=== PATIENT | male | born 1940 | race Caucasian/White ===

== ENCOUNTER 2021-02-02 09:52 | Inpatient (IN) | payer MEDICARE, OTHER ==
[~2021-02-02] VITALS: Ht 167.6 cm; Wt 87.5 kg
[2021-02-02 10:20] LABS: BASOPHILS # (AUTO) 0.1 /CMM (0.0-0.2); BASOPHILS % (AUTO) 1.5 % (0.0-2.0); BILIRUBIN,URINE Negative (NEGATIVE); COLOR,URINE YELLOW (YELLOW); EOSINOPHILS % (AUTO) 0.7 % (0.0-6.0); HEMATOCRIT 38 % (39-51); HEMOGLOBIN 12.7 g/dL (13.5-17.5); LEUKOCYTE ESTERASE ,URINE Negative (NEGATIVE); LYMPHOCYTES # (AUTO) 0.5 /CMM (0.8-4.8); LYMPHOCYTES % (AUTO) 7.5 % (20.0-44.0); MEAN CORPUSCULAR HGB CONC 33 g/dl (31.0-36.0); MEAN CORPUSCULAR VOLUME 92 fL (80-96); MONOCYTES # (AUTO) 1.2 /CMM (0.1-1.30); MONOCYTES % (AUTO) 18.6 % (2.0-12.0); NEUTROPHILS # (AUTO) 4.5 /CMM (1.8-8.9); NEUTROPHILS % (AUTO) 71.7 % (43.0-81.0); NITRITE, URINE Negative (NEGATIVE); PH,URINE 5.5 (5.0-8.0); PLATELET COUNT (AUTO) 119 /CMM (150-450); PROTEIN,URINE 30 mg/dl (NEGATIVE); RED BLOOD CELL COUNT(AUTO) 4.18 MIL/uL (4.5-6.0); UGLUCOSE Negative (NEGATIVE); UROBILINOGEN,URINE >=8.0 EU/dL (0.2); WHITE BLOOD COUNT (AUTO) 6.3 K/uL (4.3-11.0)
[2021-02-02] MEDS ORDERED: IV NS 0.9% 1,000 ML BAG IV ONE (10:30)
[2021-02-02 10:35] LABS: BACTERIA,URINE Rare /HPF (None Seen); RBC,URINE NONE SEEN /HPF (0-2); SQUAMOUS EPITHELIAL CELL,UR Few /HPF (None Seen); WBC,URINE NONE SEEN /HPF (0-3)
--- NOTE | 2021-02-02 10:35 | NUR ---
KYLAH PRIETO From Home "NOT Feeling Well/Fever?NOT acting like his usual self since yesterday". On 02 @ 2lpm via NC. connected to the monitor and pulse ox. kept comfortable, will continue to monitor accordingly.
--- NOTE | 2021-02-02 10:40 | NUR ---
NIKOLAI LYNN [phone]
[2021-02-02 10:49] LABS: ALANINE AMINOTRANSFERASE 21 U/L (12-78); ALBUMIN 2.6 g/dL (3.4-5.0); ALKALINE PHOSPHATASE 75 U/L (46-116); ASPARTATE AMINOTRANSFERASE 36 U/L (15-37); B-TYPE NATRIURETIC PEPTIDE 322 PG/ML (0-125); BILIRUBIN,DIRECT 0.3 mg/dL (0.0-0.2); BILIRUBIN,TOTAL 0.7 mg/dL (0.2-1.0); CALCIUM, SERUM 8.7 mg/dL (8.5-10.1); CARBON DIOXIDE 28 mmol/L (21-32); CHLORIDE 103 mmol/L (98-107); CREATININE 1.5 mg/dL (0.6-1.3); GLUCOSE 101 mg/dL (74-106); POTASSIUM 3.7 mmol/L (3.5-5.1); SODIUM SERUM 139 mmol/L (136-145); TOTAL PROTEIN, SERUM 6.3 g/dL (6.4-8.2); UREA NITROGEN, BLOOD 25 mg/dL (7-18)
--- NOTE | 2021-02-02 11:01 | NUR ---
MOVE SHEET SUBMITTED AND CALLED FOR TELE BED.
--- NOTE | 2021-02-02 11:10 | NUR ---
Lab Called to report COVID Negative result
[2021-02-02] MEDS ORDERED: ACETAMINOPHEN 325 MG TABLET PO ONE (11:30)
[2021-02-02] MEDS ORDERED: DEXAMETHASONE SOD PHOSPHATE 10 MG/ML VIAL IV ONE (11:30)
[2021-02-02] MEDS ORDERED: ACETAMINOPHEN 325 MG TABLET ONE (11:31)
[2021-02-02] MEDS ORDERED: DEXAMETHASONE SOD PHOSPHATE 10 MG/ML VIAL ONE (11:31)
[2021-02-02] MEDS ORDERED: CT SWABBABLE VALVE TRANS SET 1 EA INFUS.SET MC ONE (11:38)
[2021-02-02] MEDS ORDERED: IOHEXOL-350 100 ML VIAL IV ONE (11:38)
[2021-02-02] MEDS ORDERED: IV NS 0.9% 250 ML IV ONE (11:38)
[2021-02-02 11:41] LABS: BAND % (MANUAL) 4 % (0.0-5.0); LYMPHOCYTES % (MANUAL) 9 % (16-48); MONOCYTES % (MANUAL) 17 % (0-11.0); NEUTROPHILS % (MANUAL) 70 (42-76)
[2021-02-02] MEDS ORDERED: INSU100I19 SQ (11:53)
[2021-02-02] MEDS ORDERED: TERA10CA4 PO (11:53)
[2021-02-02] MEDS ORDERED: ROSU5TAB13 PO (11:53)
[2021-02-02] MEDS ORDERED: FURO40TA5 PO (11:53)
[2021-02-02] MEDS ORDERED: FERR325T23 PO (11:53)
[2021-02-02] MEDS ORDERED: FOLI0.4T6 PO (11:53)
[2021-02-02] MEDS ORDERED: JENTADUETO PO (11:53)
[2021-02-02] MEDS ORDERED: LINA5TAB PO (11:53)
[2021-02-02] MEDS ORDERED: TROS20TA3 PO (11:53)
[2021-02-02] MEDS ORDERED: CARV25TA2 PO (11:53)
[2021-02-02] MEDS ORDERED: MYRBETRIQ PO (11:53)
[2021-02-02] MEDS ORDERED: ASPI-1420 PO (11:53)
[2021-02-02] MEDS ORDERED: OMEP20CA15 PO (11:53)
[2021-02-02] MEDS ORDERED: AMLO2.5T4 PO (11:53)
[2021-02-02] MEDS ORDERED: ALLO100T PO (11:53)
[2021-02-02] MEDS ORDERED: AMYL1CAP58 PO (11:53)
[2021-02-02] MEDS ORDERED: FINA5TAB11 PO (11:53)
[2021-02-02] MEDS ORDERED: NATE120T6 PO (11:53)
[2021-02-02] MEDS ORDERED: HYDR-4077 PO (11:53)
--- NOTE | 2021-02-02 11:53 | NUR ---
room 103
--- NOTE | 2021-02-02 11:59 | NUR ---
[facility] CALLED PENCIL SORTER PAGED.
--- NOTE | 2021-02-02 12:05 | NUR ---
report given to Cassie BRAY for elfego
[2021-02-02] MEDS ORDERED: MAGNESIUM HYDROXIDE 30 ML UDC PO PRN (13:00)
[2021-02-02] MEDS ORDERED: ZOLPIDEM TARTRATE 5 MG TABLET PO PRN (13:00)
[2021-02-02] MEDS ORDERED: MAG HYDROX/AL HYDROX/SIMETH 30 ML UDC PO PRN (13:00)
[2021-02-02] MEDS ORDERED: HYDROCODONE/APAP 5/325MG TABLET PO PRN (13:00)
[2021-02-02] MEDS ORDERED: ACETAMINOPHEN 325 MG TABLET PO PRN (13:00)
[2021-02-02] MEDS ORDERED: Z GUARD REMEDY 2 OZ OINT TP PRN (13:00)
[2021-02-02] MEDS ORDERED: ONDANSETRON HCL/PF 4 MG/2 ML VIAL IVP PRN (13:00)
[2021-02-02 13:13] LABS: ABG BASE EXCESS 2.1 mmol/L; ABG OXYGEN SATURATION 96.4 % (92.0-98.5); ABG PH 7.453 (7.350-7.450); AaDO2 98.9 mmHg; COHb 0.6 % (0.5-1.5); MetHb 0.3 % (0.0-1.5); O2Hb 95.5 % (94.0-97.0); SITE, ABG Right Radial; VENT MODE, BG NASAL CANNULA
[2021-02-02 14:30] VITALS: BP 152/71
--- NOTE | 2021-02-02 14:41 | NUR ---
wheeled patient via gurney accompanied by RN and emt in no distress.
[2021-02-02 15:52] LABS: C-REACTIVE PROTEIN 15.3 mg/dL (0.0-0.9)
[2021-02-02 16:00] VITALS: BP 152/71
[2021-02-02] MEDS ORDERED: DEXTROSE 50%-WATER 50 ML DISP.SYRIN IV PRN (16:00)
[2021-02-02] MEDS ORDERED: LIPASE/PROTEASE/AMYLASE 1 EACH CAPSULE.DR PO SCH (17:00)
[2021-02-02] MEDS: NATEGLINIDE 60 MG TABLET PO SCH (18:18)
[2021-02-02] MEDS: hydrALAZINE HCL 50 MG TABLET PO SCH (18:19)
[2021-02-02] MEDS: CARVEDILOL 12.5 MG TABLET PO SCH (18:19)
[2021-02-02] MEDS: BLOOD SUGAR DIAGNOSTIC 1 EACH STRIP IN SCH ×2 (18:20→22:35)
[2021-02-02] MEDS: ENOXAPARIN SODIUM 40 MG/0.4 ML DISP.SYRIN SQ SCH (18:20)
[2021-02-02] MEDS: LIPASE/PROTEASE/AMYLASE 1 EACH CAPSULE.DR PO SCH (18:23)
[2021-02-02] MEDS: INSULIN REGULAR, HUMAN 100 UNIT/ML 3 ML VIAL SQ PRN ×2 (18:24→22:34)
[2021-02-02 20:00] VITALS: BP 146/83
--- NOTE | 2021-02-02 20:30 | NUR ---
HEARD MARGARITO FROM PATIENT' ROOM AT 1927 RUSHED INTO THE ROOM AND FOUND PATIENT ON THE FLOOR, DENIES ANY PAIN, ABLE TO MOVE EXTREMITIES WITHOUT PAIN, NO CHANGE IN LOC, PT IS ABLE TO IDENTIFY HIMSELF, ORIENRED TO NAME, DATE OF AND PLACE. ASSISSTED PATIENT BACK TO BED WITH TWO NURSES . ASSESSED PT AND FOUND SKIN TEAR ON RIGHT ARM 1 X 0.5 CM. PT STATED HE DID NOT HIT HIS HEAD. PATIENT STATED HE WANTED TO USE RESTROOM, REMINDED PT TO USE CALL LIGHT FOR ANY ASSISTANCE. NURSING HEAD OF STRATEGY AND DR BRAVO MADE AWARE. RECEIVED RIGHT ARM X RAY. NO FRACTURE IDENTIFIED IN X RAY. INFORMED SHELLY CRESPO REGARDING X RAY. DAUGHTER POLLY INFORMED, SHE ALSO ADVISED PATIENT TO USE CALL LIGHT FOR ASSISTANCE.
--- NOTE | 2021-02-02 20:40 | NUR ---
RN NOTES, INFORMED NURSE FUNDING SPECIALIST THAT PATIENT HAD A FALL AD WE HAVE AN ORDER FROM MD TO PLACE A SITTER FOR PATIENT.
[2021-02-02] MEDS ORDERED: HALOPERIDOL DECANOATE IM 100 MG/ML AMPUL IM PRN (21:00)
[2021-02-03] VITALS: BP 142/75
--- NOTE | 2021-02-03 02:00 | NUR ---
RN NOTES, PATIENT NOTED WITH O2 REMOVED, TRIED TO PUT O2 BACK TO PATIENT AND HE REACTED VERY AGGRESSIVE TRYING TO HIT ME, EDUCATION PROVIDED TO PATIENT,AN TRIED TO CALM HIM DOWN, PATIENT VERY AGGRESSIVE, WILL CONTINUE TO MONITOR.
[2021-02-03] MEDS: HALOPERIDOL LACTATE INJ 5 MG/ML VIAL IM PRN ×2 (02:08→22:47)
--- NOTE | 2021-02-03 02:20 | NUR ---
RN NOTE AT 0224 BED ALARM WENT OFF, RUN TO ROOM AND PATIENT NOTED STANDING UP WITH UNSTEADY GATE ABOUT TO FALL AGAIN, PULLING THE O2 TUBING, TRIED TO PUT PATIENT BACK TO BED AND ENCOURAGED TO USE URINAL AT BEDSIDE, AND PATIENT BECAME VERY AGITATED TRYING TO HIT STAFF, 3 NURSES TRYING TO CALM PATIENT DOWN, PATIENT CONTINUE VERY AGITATED AND AGGRESSIVE, CALLED SECURITY AND 2 SECURITY CAME TO RESCUE, PATIENT VERY AGGRESSIVE/VIOLENT AND STRONG, CALLED MD AND MD REPLIED WITH ORDER FOR BILATERAL WRIST RESTRAINS, PATIENT TRYING TO REMOVE RESTRAINS, AND SWINGING FEET TO HIT STAFF, PATIENT REMOVED IV ACCESS, MD AWARE THAT PATIENT DOESN'T HAVE IV, WILL CONTINUE TO MONITOR CLOSELY, NO SITTER AVAILABLE AT THIS TIME.
--- NOTE | 2021-02-03 02:24 | NUR ---
RN NOTE PT TRYING TO GET OUT OF BED TO USE RESTROOM, EDUCATED PATIENT TO USE URINAL WHILE IN THE BED, HE BECAME VIOLENT, AGITATED AND COMBATIVE. PT WAS TRYING TO HIT STAFF, CALLED SECURITY, INFORMED DR BRAVO, RECEIVED ORDER FOR RESTRAINT.
[2021-02-03] MEDS ORDERED: LORAZEPAM INJ 2 MG/ML VIAL IM PRN (03:30)
--- NOTE | 2021-02-03 04:00 | NUR ---
pt refused 0400 o'clock vital signs.
--- NOTE | 2021-02-03 05:00 | NUR ---
PT REFUSED LAB DRAW.
--- NOTE | 2021-02-03 07:14 | NUR ---
RN NOTE REPORT GIVEN TO ONCOMING SHIFT FOR RENA.
[2021-02-03 08:00] VITALS: BP 114/53
--- NOTE | 2021-02-03 08:00 | NUR ---
PATIENT RECEIVED IN BED, ALERT AND ORIENTED X 3 ICELANDIC SPEAKING. PATIENT ON 2L NASAL CANNULA, INTERMITTENTLY REMOVES BY HIMSELF. NO RESPIRATORY DISTRESS. PATIENT ON MONITOR SHOWING SR 80-90s. PATIENT HAS SITTER AT BEDSIDE, S/P FALL PREVIOUS SHIFT. PATIENT ALSO HAS NO IV ACCESS, PREVIOUSLY REMOVED BY PATIENT. ALL SAFETY MEASURES IN PLACE. WILL CONTINUE TO MONITOR
[2021-02-03] MEDS: NATEGLINIDE 60 MG TABLET PO SCH ×3 (08:40→17:01)
[2021-02-03] MEDS: FINASTERIDE (5 MG) 5 MG TABLET PO SCH (08:41)
[2021-02-03] MEDS: LINAGLIPTIN 5 MG TABLET PO SCH (08:41)
[2021-02-03] MEDS: FERROUS SULFATE (325 MG) 325 MG/TAB TABLET PO SCH (08:41)
[2021-02-03] MEDS: ASPIRIN EC 81 MG TABLET.DR PO SCH (08:41)
[2021-02-03] MEDS: ATORVASTATIN 10 MG TABLET PO SCH (08:42)
[2021-02-03] MEDS: FOLIC ACID 1 MG TABLET PO SCH (08:42)
[2021-02-03] MEDS: FUROSEMIDE 40 MG TABLET PO SCH (08:42)
[2021-02-03] MEDS: ALLOPURINOL 100 MG TABLET PO SCH (08:42)
[2021-02-03] MEDS: BLOOD SUGAR DIAGNOSTIC 1 EACH STRIP IN SCH ×4 (08:43→21:31)
[2021-02-03] MEDS: INSULIN REGULAR, HUMAN 100 UNIT/ML 3 ML VIAL SQ PRN ×4 (08:47→21:34)
[2021-02-03] MEDS: AMLODIPINE BESYLATE 2.5 MG TABLET PO SCH (08:48)
[2021-02-03] MEDS: CARVEDILOL 12.5 MG TABLET PO SCH ×2 (08:48→17:03)
[2021-02-03] MEDS: HOME MED MISCELLANEOUS PO SCH ×2 (08:49→17:01)
[2021-02-03] MEDS: PANTOPRAZOLE 40 MG TABLET.DR PO SCH (08:50)
[2021-02-03 09:00] LABS: BASOPHILS % (AUTO) 0.3 % (0.0-2.0); HEMATOCRIT 37 % (39-51); HEMOGLOBIN 12.1 g/dL (13.5-17.5); LYMPHOCYTES # (AUTO) 0.6 /CMM (0.8-4.8); MEAN CORPUSCULAR HGB CONC 33 g/dl (31.0-36.0); MEAN CORPUSCULAR VOLUME 92 fL (80-96); MONOCYTES # (AUTO) 0.6 /CMM (0.1-1.30); MONOCYTES % (AUTO) 10.6 % (2.0-12.0); NEUTROPHILS # (AUTO) 4.4 /CMM (1.8-8.9); NEUTROPHILS % (AUTO) 79.1 % (43.0-81.0); PLATELET COUNT (AUTO) 154 /CMM (150-450); RED BLOOD CELL COUNT(AUTO) 3.98 MIL/uL (4.5-6.0); WHITE BLOOD COUNT (AUTO) 5.6 K/uL (4.3-11.0)
[2021-02-03] MEDS ORDERED: Medication Not On Formulary EA ([Myrbetriq] 25 MG) PO SCH (09:00)
[2021-02-03 09:16] LABS: CHOLESTEROL 80 mg/dL (<200); HDL CHOLESTEROL 17 mg/dL (40-60); LDL 43 mg/dL (0-99); TRIGLYCERIDES 146 mg/dL (30-150)
--- NOTE | 2021-02-03 09:30 | NUR ---
LASIX GIVEN ORDERED, BP 114/53
[2021-02-03 09:39] LABS: CALCIUM, SERUM 9.7 mg/dL (8.5-10.1); CARBON DIOXIDE 22 mmol/L (21-32); CHLORIDE 104 mmol/L (98-107); CREATININE 1.4 mg/dL (0.6-1.3); GLUCOSE 280 mg/dL (74-106); POTASSIUM 3.8 mmol/L (3.5-5.1); SODIUM SERUM 139 mmol/L (136-145); UREA NITROGEN, BLOOD 31 mg/dL (7-18)
[2021-02-03] MEDS: hydrALAZINE HCL 50 MG TABLET PO SCH ×2 (10:03→17:04)
[2021-02-03] MEDS: TERAZOSIN HCL 5 MG CAPSULE PO SCH (10:03)
[2021-02-03] MEDS: LIPASE/PROTEASE/AMYLASE 1 EACH CAPSULE.DR PO SCH ×3 (10:13→17:01)
[2021-02-03 12:00] VITALS: BP 101/56
[2021-02-03 16:00] VITALS: BP 108/72
[2021-02-03] MEDS: ENOXAPARIN SODIUM 40 MG/0.4 ML DISP.SYRIN SQ SCH (17:09)
--- NOTE | 2021-02-03 18:29 | NUR ---
PATIENT REMAINS IN BED NO ACUTE CHANGE IN CONDITION. PATIENT REMAINS WITH 1:1 SITTER. PATIENT ON 2L NASAL CANNULA, NO RESPIRATORY DISTRESS. PATIENT HAS RAC 20G IV. FLUSHED AND INTACT. ALL SAFETY MEASURES IN PLACE. ALL NEEDS TO BE ENDORSED TO ONCOMING RN.
--- NOTE | 2021-02-03 19:35 | NUR ---
rn opening notes received pt in bed, a/o x3, cooperative. turkmen speaking injection molding machine operator utilized. pt is on 2L via nasal cannula tolerating well, no resp distress or sob noted. pt is on tele monitoring. presents with SR with BBB baseline to pt. pt has RAC #20. flushed. pt uses urinal with assist. safety measures in place. hob elevated. side rails up x3, bed locked in lowest position. bed alarm on. call light within reach. sitter at bedside. will cont to closely monitor.
[2021-02-03 20:00] VITALS: BP 108/72
--- NOTE | 2021-02-03 20:35 | NUR ---
talked to pt daughter issac, helps translate with father when needed. gave update.
[2021-02-03] MEDS: AMOX/CLAVULANATE 875 MG TABLET PO SCH (21:56)
--- NOTE | 2021-02-03 23:09 | NUR ---
pt became extremely agitated tried to get out of bed, became aggressive attempting to hit, bite, kick staff. despite de escalation, with daughter on phone at bedside trying to talk to her father, was unsuccessful. pt was combative, soft joce wrist restraints applied. haldol IM prn administered as ordered. hob elevated. will cont to monitor. sitter remains at bedside.
--- NOTE | 2021-02-04 00:40 | NUR ---
pt refused midnight vitals, attempted to kick staff. will cont to monitor
--- NOTE | 2021-02-04 01:32 | NUR ---
pt sheets soiled with urine, pt became combative when trying to change sheets/clean pt, with multiple staff at bedside, was able to change linens and perform pericare. sitter at bedside
[2021-02-04 04:00] VITALS: BP 154/71
--- NOTE | 2021-02-04 04:35 | NUR ---
only partial vitals taken due to pt refusing, being aggressive and combative.
--- NOTE | 2021-02-04 06:30 | NUR ---
rn closing notes pt is asleep at this time. did not sleep at all throughout shift, pt remains on room air, no s/s of distress noted. breathing even and unlabored. tele monitoring off due to pt refusing and attempting to throw equipment, safety measures in place. will endorse to oncoming nurse.
[2021-02-04] MEDS: BLOOD SUGAR DIAGNOSTIC 1 EACH STRIP IN SCH ×4 (07:30→21:21)
--- NOTE | 2021-02-04 07:30 | NUR ---
RN OPENING NOTES PATIENT PRESENT IN BED, A/OX3, ST HELENIAN SPEAKER, ON ROOM AIR, REFUSING TO TAKE VITALS, UNCOOPERATIVE AT THIS TIME, DENIES PAIN, NO S/SX OF SOB OR RESP DISTRESS NOTED AT THIS TIME , REMOVED TELE-MONITOR, UNABLE TO DETECT RHYTHM, R AC IV LINE, INTACT, FLUSHED, COVERED WITH SLEEVE, SAFETY MEASURES IN PLACE, SITTER AT BED SITE, BED LOCKED, IN LOWEST POSITION, CALL LIGHT IN REACH, WILL CONT TO MONITOR
--- NOTE | 2021-02-04 07:50 | NUR ---
REFUSED ACUTE CHECK, EDUCATION PROVIDED X3, STILL REFUSING
[2021-02-04 08:00] VITALS: BP 134/71
--- NOTE | 2021-02-04 08:00 | NUR ---
Refusing all PO meds and acute check, will offer again
[2021-02-04] MEDS: ASPIRIN EC 81 MG TABLET.DR PO SCH (10:20)
[2021-02-04] MEDS: hydrALAZINE HCL 50 MG TABLET PO SCH ×2 (10:20→17:00)
[2021-02-04] MEDS: LINAGLIPTIN 5 MG TABLET PO SCH (10:21)
[2021-02-04] MEDS: ALLOPURINOL 100 MG TABLET PO SCH (10:21)
[2021-02-04] MEDS: FUROSEMIDE 40 MG TABLET PO SCH (10:21)
[2021-02-04] MEDS: AMLODIPINE BESYLATE 2.5 MG TABLET PO SCH (10:21)
[2021-02-04] MEDS: PANTOPRAZOLE 40 MG TABLET.DR PO SCH (10:21)
[2021-02-04] MEDS: FINASTERIDE (5 MG) 5 MG TABLET PO SCH (10:21)
[2021-02-04] MEDS: CARVEDILOL 12.5 MG TABLET PO SCH ×2 (10:22→17:00)
[2021-02-04] MEDS: AMOX/CLAVULANATE 875 MG TABLET PO SCH ×2 (10:22→20:09)
[2021-02-04] MEDS: NATEGLINIDE 60 MG TABLET PO SCH ×3 (10:22→18:02)
[2021-02-04] MEDS: HOME MED MISCELLANEOUS PO SCH ×2 (10:23→18:06)
[2021-02-04] MEDS: FOLIC ACID 1 MG TABLET PO SCH (10:23)
[2021-02-04] MEDS: ATORVASTATIN 10 MG TABLET PO SCH (10:23)
[2021-02-04] MEDS: FERROUS SULFATE (325 MG) 325 MG/TAB TABLET PO SCH (10:23)
[2021-02-04] MEDS: INSULIN REGULAR, HUMAN 100 UNIT/ML 3 ML VIAL SQ PRN ×4 (10:25→21:33)
[2021-02-04] MEDS: TERAZOSIN HCL 5 MG CAPSULE PO SCH (10:29)
[2021-02-04] MEDS: LIPASE/PROTEASE/AMYLASE 1 EACH CAPSULE.DR PO SCH ×3 (10:29→18:02)
--- NOTE | 2021-02-04 10:29 | NUR ---
After talking with Fadumo, patient agreed to follow up with treatment plan and take his medications
--- NOTE | 2021-02-04 11:06 | NUR ---
AFTER TALKING TO OVER THE PHONE PATIENT BECOME MORE COOPERATIVE WITH TREATMENT PLAN, MORNING PO MEDS AND INSULIN GIVEN, ATE BREAKFAST, PROVIDED WITH FLUIDS, VERBALIZED UNDERSTANDING OF FUTURE TREATMENT PLAN [phone] RASHAAD BAEZ
[2021-02-04 12:00] VITALS: BP 134/71
[2021-02-04 13:11] LABS: BASOPHILS % (AUTO) 0.4 % (0.0-2.0); EOSINOPHILS % (AUTO) 2.6 % (0.0-6.0); HEMATOCRIT 39 % (39-51); HEMOGLOBIN 12.6 g/dL (13.5-17.5); LYMPHOCYTES # (AUTO) 0.6 /CMM (0.8-4.8); LYMPHOCYTES % (AUTO) 12.9 % (20.0-44.0); MEAN CORPUSCULAR HGB CONC 33 g/dl (31.0-36.0); MEAN CORPUSCULAR VOLUME 92 fL (80-96); MONOCYTES # (AUTO) 0.5 /CMM (0.1-1.30); MONOCYTES % (AUTO) 10.3 % (2.0-12.0); NEUTROPHILS # (AUTO) 3.3 /CMM (1.8-8.9); NEUTROPHILS % (AUTO) 73.8 % (43.0-81.0); PLATELET COUNT (AUTO) 167 /CMM (150-450); RED BLOOD CELL COUNT(AUTO) 4.22 MIL/uL (4.5-6.0); WHITE BLOOD COUNT (AUTO) 4.5 K/uL (4.3-11.0)
[2021-02-04 13:59] LABS: CARBON DIOXIDE 26 mmol/L (21-32); CHLORIDE 102 mmol/L (98-107); CREATININE 1.5 mg/dL (0.6-1.3); GLUCOSE 305 mg/dL (74-106); MAGNESIUM 1.9 mg/dL (1.8-2.4); POTASSIUM 3.8 mmol/L (3.5-5.1); SODIUM SERUM 138 mmol/L (136-145); UREA NITROGEN, BLOOD 29 mg/dL (7-18)
--- NOTE | 2021-02-04 15:13 | NUR ---
PATIENT REMAINS IN ROOM, SITTER AT BED SITE, CONT TO BE COOPERATIVE WITH MEDICATIONS AND TREATMENT PLAN, VS STABLE, CONT TO MONITOR
[2021-02-04] MEDS ORDERED: LORAZEPAM INJ 2 MG/ML VIAL IM PRN (15:30)
[2021-02-04 16:00] VITALS: BP 98/52
[2021-02-04] MEDS: ENOXAPARIN SODIUM 40 MG/0.4 ML DISP.SYRIN SQ SCH (18:06)
--- NOTE | 2021-02-04 18:29 | NUR ---
RN CLOSING NOTES PATIENT REMAINS IN BED, COOPERATIVE, SITTER AT BED SITE, ABLE TO USE BATHROOM X2 WITH ASSISTANCE, MEDICATIONS PROVIDED, COMFORT NEEDS ATTENDED, VERBALIZED UNDERSTANDING WITH TREATMENT, WILL ENDORSE TO PM SHIFT RN FOR RENA
--- NOTE | 2021-02-04 19:48 | NUR ---
RN NOTE RECEIVED PT IN BED. ALERT AND ORIENTED, CALM AND COOPERATIVE. NO DISTRESS NOTED. IV ON RAC PATENT AND INTACT. SITTER AT BEDSIDE. ALL SAFETY MEASURES IMPLEMENTED PER PROTOCOL. WILL CONTINUE TO MONITOR.
[2021-02-04 20:00] VITALS: BP 101/56
[2021-02-05 04:00] VITALS: BP 106/57
[2021-02-05 05:55] LABS: BASOPHILS % (AUTO) 0.6 % (0.0-2.0); EOSINOPHILS % (AUTO) 3.2 % (0.0-6.0); HEMATOCRIT 38 % (39-51); HEMOGLOBIN 12.8 g/dL (13.5-17.5); LYMPHOCYTES # (AUTO) 0.7 /CMM (0.8-4.8); LYMPHOCYTES % (AUTO) 17.6 % (20.0-44.0); MEAN CORPUSCULAR HGB CONC 33 g/dl (31.0-36.0); MEAN CORPUSCULAR VOLUME 90 fL (80-96); MONOCYTES # (AUTO) 0.6 /CMM (0.1-1.30); MONOCYTES % (AUTO) 14.5 % (2.0-12.0); NEUTROPHILS # (AUTO) 2.7 /CMM (1.8-8.9); NEUTROPHILS % (AUTO) 64.1 % (43.0-81.0); PLATELET COUNT (AUTO) 171 /CMM (150-450); RED BLOOD CELL COUNT(AUTO) 4.27 MIL/uL (4.5-6.0); WHITE BLOOD COUNT (AUTO) 4.2 K/uL (4.3-11.0)
--- NOTE | 2021-02-05 06:31 | NUR ---
RN NOTES PT REMAIN CALM AND COOPERATIVE THROUGHOUT SHIFT. ASSISTED TO RESTROOM. SITTER AT BEDSIDE. NO DISTRESS NOTED. REMAIN AFEBRILE. AL SAFETY MEASURES MAINTAINED. WILL ENDORSE TO NEXT SHIFT NURSE FOR RENA.
[2021-02-05 07:16] LABS: ALANINE AMINOTRANSFERASE 26 U/L (12-78); ALBUMIN 2.6 g/dL (3.4-5.0); ALKALINE PHOSPHATASE 63 U/L (46-116); ASPARTATE AMINOTRANSFERASE 41 U/L (15-37); BILIRUBIN,TOTAL 0.5 mg/dL (0.2-1.0); CALCIUM, SERUM 8.9 mg/dL (8.5-10.1); CARBON DIOXIDE 26 mmol/L (21-32); CHLORIDE 105 mmol/L (98-107); CREATININE 1.6 mg/dL (0.6-1.3); GLUCOSE 191 mg/dL (74-106); PHOSPHORUS 3.3 mg/dL (2.5-4.9); POTASSIUM 3.5 mmol/L (3.5-5.1); SODIUM SERUM 141 mmol/L (136-145); TOTAL PROTEIN, SERUM 6.2 g/dL (6.4-8.2); UREA NITROGEN, BLOOD 25 mg/dL (7-18)
--- NOTE | 2021-02-05 07:30 | NUR ---
RN OPENING NOTES PATIENT RESTING AND AWAKE IN BED, A/OX4, RWANDAN SPEAKER, ON ROOM AIR SPO2 95%, DENIES PAIN, NO S/SX OF SOB OR RESP DISTRESS NOTED AT THIS TIME , R AC IV LINE, INTACT, FLUSHED, COVERED WITH SLEEVE, SAFETY MEASURES IN PLACE, SITTER AT BED SITE, BED LOCKED, IN LOWEST POSITION, CALL LIGHT IN REACH, WILL CONT TO MONITOR
[2021-02-05 08:00] VITALS: BP 118/57
[2021-02-05] MEDS: BLOOD SUGAR DIAGNOSTIC 1 EACH STRIP IN SCH ×4 (08:00→22:07)
[2021-02-05] MEDS: LIPASE/PROTEASE/AMYLASE 1 EACH CAPSULE.DR PO SCH ×3 (08:18→17:23)
[2021-02-05] MEDS: FERROUS SULFATE (325 MG) 325 MG/TAB TABLET PO SCH (08:18)
[2021-02-05] MEDS: NATEGLINIDE 60 MG TABLET PO SCH ×3 (08:19→17:23)
[2021-02-05] MEDS: ALLOPURINOL 100 MG TABLET PO SCH (08:19)
[2021-02-05] MEDS: FINASTERIDE (5 MG) 5 MG TABLET PO SCH (08:19)
[2021-02-05] MEDS: CARVEDILOL 12.5 MG TABLET PO SCH ×2 (08:19→16:54)
[2021-02-05] MEDS: ASPIRIN EC 81 MG TABLET.DR PO SCH (08:19)
[2021-02-05] MEDS: PANTOPRAZOLE 40 MG TABLET.DR PO SCH (08:19)
[2021-02-05] MEDS: hydrALAZINE HCL 50 MG TABLET PO SCH ×2 (08:19→16:53)
[2021-02-05] MEDS: AMLODIPINE BESYLATE 2.5 MG TABLET PO SCH (08:20)
[2021-02-05] MEDS: AMOX/CLAVULANATE 875 MG TABLET PO SCH ×2 (08:20→20:30)
[2021-02-05] MEDS: INSULIN REGULAR, HUMAN 100 UNIT/ML 3 ML VIAL SQ PRN ×4 (08:21→21:34)
[2021-02-05] MEDS: TERAZOSIN HCL 5 MG CAPSULE PO SCH (08:22)
[2021-02-05] MEDS: LINAGLIPTIN 5 MG TABLET PO SCH (08:22)
[2021-02-05] MEDS: ATORVASTATIN 10 MG TABLET PO SCH (08:22)
[2021-02-05] MEDS: FOLIC ACID 1 MG TABLET PO SCH (08:22)
[2021-02-05] MEDS: HOME MED MISCELLANEOUS PO SCH ×2 (08:22→17:25)
[2021-02-05 10:15] LABS: EOSINOPHILS % (MANUAL) 4 % (0-4); LYMPHOCYTES % (MANUAL) 14 % (16-48); MONOCYTES % (MANUAL) 11 % (0-11.0); NEUTROPHILS % (MANUAL) 70 (42-76); REACTIVE LYMPHOCYTES 1 % (0-0)
[2021-02-05 12:00] VITALS: BP 118/53
[2021-02-05 16:00] VITALS: BP 98/52
[2021-02-05] MEDS: ENOXAPARIN SODIUM 40 MG/0.4 ML DISP.SYRIN SQ SCH (17:21)
--- NOTE | 2021-02-05 18:37 | NUR ---
RN CLOSING NOTES PATIENT REMAINS IN ROOM, STABLE, SPO2 92-93% ON ROOM AIR, AND 96% ON 2L OF o2 VIA NC, PLACED HIM ON NC, EXPLAINED TREATMENT PLANED,MEDICATIONS GIVEN, COMFORT NEEDS ATTENDED, SAFETY MEASURES IN PLACE, PHONE AND CALL LIGHT IN REACH, WILL ENDORSE TO PM SHIFT RN FOR RENA
--- NOTE | 2021-02-05 19:43 | NUR ---
RN NOTE RECEIVED PT IN BED A/A/O X4. PT IS ON 2L VIA NC SATING 95%. PT HAS UNLABORED BREATHING. SAFETY MEASURES IN PLACE.
[2021-02-05 20:00] VITALS: BP 127/74
[2021-02-06 04:00] VITALS: BP 139/76
[2021-02-06 05:54] LABS: BASOPHILS % (AUTO) 0.6 % (0.0-2.0); EOSINOPHILS % (AUTO) 2.3 % (0.0-6.0); HEMATOCRIT 38 % (39-51); HEMOGLOBIN 12.3 g/dL (13.5-17.5); LYMPHOCYTES # (AUTO) 0.8 /CMM (0.8-4.8); LYMPHOCYTES % (AUTO) 17.1 % (20.0-44.0); MEAN CORPUSCULAR HGB CONC 33 g/dl (31.0-36.0); MEAN CORPUSCULAR VOLUME 91 fL (80-96); MONOCYTES # (AUTO) 0.7 /CMM (0.1-1.30); MONOCYTES % (AUTO) 15.1 % (2.0-12.0); NEUTROPHILS % (AUTO) 64.9 % (43.0-81.0); PLATELET COUNT (AUTO) 154 /CMM (150-450); RED BLOOD CELL COUNT(AUTO) 4.16 MIL/uL (4.5-6.0); WHITE BLOOD COUNT (AUTO) 4.5 K/uL (4.3-11.0)
[2021-02-06 06:41] LABS: ALANINE AMINOTRANSFERASE 31 U/L (12-78); ALBUMIN 2.7 g/dL (3.4-5.0); ALKALINE PHOSPHATASE 71 U/L (46-116); ASPARTATE AMINOTRANSFERASE 42 U/L (15-37); BILIRUBIN,TOTAL 0.5 mg/dL (0.2-1.0); CALCIUM, SERUM 9.2 mg/dL (8.5-10.1); CARBON DIOXIDE 25 mmol/L (21-32); CHLORIDE 105 mmol/L (98-107); CREATININE 1.5 mg/dL (0.6-1.3); GLUCOSE 231 mg/dL (74-106); PHOSPHORUS 3.3 mg/dL (2.5-4.9); POTASSIUM 3.6 mmol/L (3.5-5.1); SODIUM SERUM 141 mmol/L (136-145); TOTAL PROTEIN, SERUM 6.2 g/dL (6.4-8.2); UREA NITROGEN, BLOOD 24 mg/dL (7-18)
--- NOTE | 2021-02-06 07:10 | NUR ---
RN NOTE PT REMAINED STABLE DURING MY SHIFT, REPORT GIVEN TO ONCOMING NURSE FOR RENA.
[2021-02-06] MEDS: BLOOD SUGAR DIAGNOSTIC 1 EACH STRIP IN SCH ×3 (07:30→17:24)
--- NOTE | 2021-02-06 07:30 | NUR ---
RN OPENING NOTE PATIENT PRESENT IN BED, A/OX4, ON ROOM AIR, SPO2 94-95%, NO SOB, COMFORTABLE UNLABORED BREATHING, DENIES PAIN OR DISCOMFORT, COOPERATIVE, IV LINE FLUSHED AND PATENT, SAFETY PRECAUTIONS IN PLACE, BED LOCKED , LOWEST POSITION, SITTER AT BED SITE, CALL LIGHT IN REACH, FOOD AND FLUIDS PROVIDED, WILL CONT TO MONITOR
[2021-02-06 08:00] VITALS: BP 119/65
[2021-02-06] MEDS: PANTOPRAZOLE 40 MG TABLET.DR PO SCH (08:34)
[2021-02-06] MEDS: ALLOPURINOL 100 MG TABLET PO SCH (08:34)
[2021-02-06] MEDS: NATEGLINIDE 60 MG TABLET PO SCH ×3 (08:34→17:24)
[2021-02-06] MEDS: ASPIRIN EC 81 MG TABLET.DR PO SCH (08:34)
[2021-02-06] MEDS: TERAZOSIN HCL 5 MG CAPSULE PO SCH (08:35)
[2021-02-06] MEDS: LINAGLIPTIN 5 MG TABLET PO SCH (08:36)
[2021-02-06] MEDS: FERROUS SULFATE (325 MG) 325 MG/TAB TABLET PO SCH (08:36)
[2021-02-06] MEDS: ATORVASTATIN 10 MG TABLET PO SCH (08:36)
[2021-02-06] MEDS: AMLODIPINE BESYLATE 2.5 MG TABLET PO SCH (08:36)
[2021-02-06] MEDS: hydrALAZINE HCL 50 MG TABLET PO SCH ×2 (08:36→17:24)
[2021-02-06] MEDS: HOME MED MISCELLANEOUS PO SCH ×2 (08:37→17:24)
[2021-02-06] MEDS: FOLIC ACID 1 MG TABLET PO SCH (08:37)
[2021-02-06] MEDS: CARVEDILOL 12.5 MG TABLET PO SCH ×2 (08:37→17:24)
[2021-02-06] MEDS: LIPASE/PROTEASE/AMYLASE 1 EACH CAPSULE.DR PO SCH ×3 (08:38→17:24)
[2021-02-06] MEDS: FINASTERIDE (5 MG) 5 MG TABLET PO SCH (08:39)
[2021-02-06] MEDS: INSULIN REGULAR, HUMAN 100 UNIT/ML 3 ML VIAL SQ PRN ×3 (08:42→17:26)
[2021-02-06 09:41] LABS: BAND % (MANUAL) 1 % (0.0-5.0); BLASTS, MANUAL % 1 % (0-0); EOSINOPHILS % (MANUAL) 6 % (0-4); LYMPHOCYTES % (MANUAL) 16 % (16-48); MONOCYTES % (MANUAL) 11 % (0-11.0); NEUTROPHILS % (MANUAL) 65 (42-76)
[2021-02-06] MEDS: AMOX/CLAVULANATE 875 MG TABLET PO SCH (09:50)
[2021-02-06 12:00] VITALS: BP 119/65
[2021-02-06 14:00] VITALS: BP 113/57
--- NOTE | 2021-02-06 14:00 | NUR ---
PT on bed site, ambulating patient with walker
--- NOTE | 2021-02-06 15:22 | NUR ---
daughter Elissa called multiple times, requesting MD to call her, and all info about pt's condition. MD made call, informed about discharge, however daughter not agree with discharge, and requesting contact pt's primary MD and send her all paperwork (Vito Davies MD) Contacted [facility] high risk case manager, no response, left message, will cont to follow up
[2021-02-06 16:00] VITALS: BP 113/57
[2021-02-06 17:24] VITALS: BP 113/57
[2021-02-06] MEDS: ENOXAPARIN SODIUM 40 MG/0.4 ML DISP.SYRIN SQ SCH (17:25)
--- NOTE | 2021-02-06 18:14 | NUR ---
patient will be discharge at [facility], package pick up time 7pm, report given to KATARINA Arango
--- NOTE | 2021-02-06 18:16 | NUR ---
Called family, informed about discharge
--- NOTE | 2021-02-06 18:57 | NUR ---
RN CLOSING NOTE PATIENT READY FOR DISCHARGE, EXIT CARE DONE, IV LINE REMOVED, WILL ENDORSE TO PM SHIFT RN FOR RENA
--- NOTE | 2021-02-06 20:15 | NUR ---
RN NOTE EMT ARRIVED AT 2009, REPORT GIVEN TO KYLE STAFFORD, PATIENT ID BAND CONFIRMED, BELONGINGS ACCOUNTED FOR INFRONT OF PATIENT WITH EMT AND FINAL EXPENSE AGENT PRESENT. VS FOLLOWS: T 98.6, HR 92, RR 18, BP 113/59, SPO2 96% AT 2LPM VIA NC. IV LINE REMOVED. PATIENT TRANSFERRED TO [facility] VIA 2 PERSON ASSIST, WILL BE TRANSFERRED TO [facility]. PATIENT SAFETY MAINTAINED. LEFT AT 2014 IN STABLE CONDITION ACCOMPANIED BY 2 EMT PERSONNEL. FAMILY WAS NOTIFIED. LADIES UNDERWEAR OPERATOR MADE AWARE.
== END 2021-02-06 20:15 | DRG 865 ==
LOC: ER 10:08 → TELE1 12:00 → MEDSG1 02-04 10:25
PROVIDERS: ADMIT Nurse Practitioner Family
DX: B34.9 Viral infection, unspecified (principal); J96.01 Acute respiratory failure with hypoxia; E43 Unspecified severe protein-calorie malnutrition; J43.9 Emphysema, unspecified; E88.09 Other disorders of plasma-protein metabolism, not elsewhere classified; D64.9 Anemia, unspecified; E78.00 Pure hypercholesterolemia, unspecified; I13.10 Hypertensive heart and chronic kidney disease without heart failure, with stage 1 through stage 4 chronic kidney disease, or unspecified chronic kidney disease; Z20.822 Contact with and (suspected) exposure to COVID-19; E11.22 Type 2 diabetes mellitus with diabetic chronic kidney disease; N18.30 Chronic kidney disease, stage 3 unspecified; E78.5 Hyperlipidemia, unspecified; G47.30 Sleep apnea, unspecified; K86.89 Other specified diseases of pancreas; N40.0 Benign prostatic hyperplasia without lower urinary tract symptoms; Z79.82 Long term (current) use of aspirin; Z79.899 Other long term (current) drug therapy; Z87.891 Personal history of nicotine dependence; Z79.84 Long term (current) use of oral hypoglycemic drugs; E79.0 Hyperuricemia without signs of inflammatory arthritis and tophaceous disease
CPT/HCPCS: 36415; 36600; 70450-TC; 71045-TC; 73050-TC; 80048-TC; 80053-TC; 80061-TC; 80074; 80076-TC; 81001; 82728-TC; 82803-TC; 82962-TC; 83605-TC; 83615-TC; 83735-TC; 83880; 84100-TC; 84484-TC; 85025-TC; 85378-TC; 85730-TC; 86140-TC; 87040-TC; 87081-TC; 87086-TC; 87806; 97110-TC; 97112-TC; 97116-TC; 97530-TC; C9803; G0378; J1100; J1630; J1650; J1815; J7030; J7050; Q9967; U0003